=== PATIENT | female | born 1935 | race Caucasian/White ===

== ENCOUNTER 2018-10-18 11:07 | Day surgery (SDC) | payer MEDICARE, MEDICAID ==
[2018-10-18] VITALS (10 sets, daily range): BP systolic 144–163; BP diastolic 60–125; PULSE 87–96; TEMP 98.2
[~2018-10-18] VITALS: Ht 157.6 cm; Wt 101.0 kg
[~2018-10-18 11:07] MED LIST: ALBUTEROL0.83 MG/ML IH; ALPHAGAN OPHTH D5 ML OU; ASPIRIN 32325 MG/TAB PO; BETIMOL 0.5% OPH5 ML OU; LIPITOR 10MG10 MG PO; NORVASC 5MG5 MG/TAB PO; PEPCID 20MG TAB20 MG PO; PLAVIX 75MG TAB75 MG PO; PREDNISONE 5MG5 MG PO; PROAIR HFA0.09 MG/AC IH; RESTASIS 60VL OU; RT ADVAIR HFA 1112 G IH; SEROQUEL 2525 MG/TAB PO; SEROQUEL50 MG PO; TENORMIN 2525 MG/TAB PO; TRAVATAN Z 5 ML5 ML OU; TYLENOL 325MG325 MG PO
[2018-10-18 11:43] LABS: MEAN CELL VOLUME 86 fl (80.0-100.0); MEAN CORPUSCULAR HGB CONC 28 g/dl (33.0-37.0); MEAN PLATELET VOLUME 12.3 fl (7.4-10.4); PLATELET COUNT 208 K/mm3 (130-400); RED BLOOD COUNT 3.51 M/mm3 (4.10-5.30); REDCELL DISTRIBUTION WIDTH-CV 17.2 % (11.5-14.5)
[2018-10-18 11:45] LABS: HEMATOCRIT 30.3 % (37.0-47.0); HEMOGLOBIN 8.6 g/dl (12.5-16.0); MEAN CORPUSCULAR HEMOGLOBIN 25 pg (27.0-31.0)
[2018-10-18 11:52] LABS: INR 1.1 (0.8-3.0); PROTHROMBIN TIME 12.5 SECONDS (9.7-12.8)
[2018-10-18 11:54] LABS: CALCIUM 9.3 mg/dL (8.4-10.2); CREATININE, serum 0.63 (0.52-1.25); POTASSIUM 3.4 mmol/L (3.4-5.0)
[2018-10-18] MEDS ORDERED: RT ADVAIR 228 DISKUS IH (12:34)
[2018-10-18] MEDS ORDERED: ASPIRIN 81M81 MG/TA2 PO (12:39)
[2018-10-18] MEDS ORDERED: AMITRIPTYLINE H50 M1 PO (12:43)
[2018-10-18] MEDS ORDERED: ELIQUIS 5MG PO (12:45)
[2018-10-18] MEDS ORDERED: MUCINEX D1 TER PO (12:46)
[2018-10-18] MEDS ORDERED: DITROPAN 5MG TAB5 MG PO (12:47)
[2018-10-18] MEDS ORDERED: CHERATUSSIN AC120 ML PO (12:49)
[2018-10-18] MEDS ORDERED: SINGULAIR 110 MG/TAB PO (12:51)
[2018-10-18] MEDS ORDERED: SYSTANE BALANCE10 M1 OP (12:52)
[2018-10-18] MEDS ORDERED: TYLENOL 500MG500 MG PO (12:54)
[2018-10-18] MEDS ORDERED: XALATAN EYE DROPS OD (12:56)
[2018-10-18] MEDS ORDERED: XANAX .25M0.25 MG/TA PO (12:57)
[2018-10-18] MEDS ORDERED: DULCOLAX S10 MG/SUPP RC (13:00)
[2018-10-18] MEDS ORDERED: TUMS500 MG PO (13:01)
--- NOTE | 2018-10-18 13:20 | NUR ---
Initial visit; Patient and her son thanked Cv Rn for offering prayer and encouragement prior to her 'Procedure.'
--- NOTE | 2018-10-18 15:09 | NUR ---
Pt to chemical laboratory technician per bed.
--- NOTE | 2018-10-18 15:43 | NUR ---
PLEASE SEE MERGE FOR ALL MEDICATION ADMINISTRATION TIMES, ALSO FOR RASS ASSESSMENT DURING AND POST PROCEDURE.
--- NOTE | 2018-10-18 16:45 | NUR ---
Bedside report taken from GUILLERMINA Jackson in labor and delivery nurse. Pt does have mild skin irritation around dressing. Offered ice to be applied. Pt denies at this time. Son, Juarez, at bedside. Pt does not wish to eat at this time due to difficulty swallowing. Pt taking sips of water with no difficulty.
--- NOTE | 2018-10-18 17:51 | NUR ---
FOOD ORDERED FOR PT. PT DENIES PAIN. SON STEPPED AWAY FROM BEDSIDE TO RUN ERRAND.
--- NOTE | 2018-10-18 19:17 | NUR ---
THIS RN CALLED GUILLERMINA HOLLAND AT [facility] AND GAVE REPORT. PT'S SON, MUKUND, IS COMING BACK TO [employer] [facility] AND TAKE HER BACK TO THE NURSING CENTER. PT'S PAIN LEVEL IS 3/10 IN HER RIGHT LOWER BACK. PT DESCRIBES HER PAIN BURNING. PT REFUSES PAIN MEDICATION AT THIS TIME. PT TOLERATING INTAKE WITH NO N/V.
--- NOTE | 2018-10-18 20:18 | NUR ---
D/C instructions were reviewed with pt/son. Pt/son voice understanding. Pt voided with no complications. Pt ambulating in and around the room with one assist. Pt does use a walker at nursing center. IV was discontinued with no phlebitis or infiltration and catheter was intact. Pt was discharged via w/c to the care of son in private vehicle with discharge instructions in personal belonging bag.
== END 2018-10-18 20:22 | disposition home or self-care (01) ==
LOC: COL.CAR 11:07
PROVIDERS: Internal Medicine Interventional Cardiology
DX: R94.39 Abnormal result of other cardiovascular function study (principal); Z79.01 Long term (current) use of anticoagulants; Z79.82 Long term (current) use of aspirin; I27.20 Pulmonary hypertension, unspecified; J44.9 Chronic obstructive pulmonary disease, unspecified; R60.0 Localized edema; I10 Essential (primary) hypertension; Z86.73 Personal history of transient ischemic attack (TIA), and cerebral infarction without residual deficits; E11.9 Type 2 diabetes mellitus without complications; Z87.891 Personal history of nicotine dependence
CPT/HCPCS: J1644; J2250; J3010; Q9967